=== PATIENT | male | born 1980 | race Caucasian/White ===

== ENCOUNTER 2024-11-25 02:02 | Emergency (ER) | payer MEDICARE, OTHER ==
[~2024-11-25] VITALS: Ht 170.2 cm; Wt 82.0 kg
[~2024-11-25 02:02] MED LIST: ALPR1TAB2 PO; ARIP30TA2 PO; BUPR150T3
[2024-11-25 02:14] VITALS: BP 128/78; PULSE 90; RESP 18; TEMP 98.8; O2SAT 100
[2024-11-25] MEDS ORDERED: CLIN-194 MT (02:42)
== END 2024-11-25 03:22 | disposition home or self-care (01) ==
LOC: ER 02:02
DX: S00.81XA Abrasion of other part of head, initial encounter (principal); L08.9 Local infection of the skin and subcutaneous tissue, unspecified; Z88.0 Allergy status to penicillin; Y04.0XXA Assault by unarmed brawl or fight, initial encounter; Y93.89 Activity, other specified; Y92.89 Other specified places as the place of occurrence of the external cause; Y99.8 Other external cause status
CPT/HCPCS: 99283